=== PATIENT | female | born 1995 | race Caucasian/White ===

== ENCOUNTER 2017-02-25 15:54 | Emergency (ER) | payer OTHER ==
[2017-02-25 16:01] VITALS: BP 110/70; PULSE 92; RESP 20; TEMP 98.2; O2SAT 97
[2017-02-25] MEDS ORDERED: FAMOTIDINE 20 MG TAB PO ONE (16:17)
--- NOTE | 2017-02-25 16:25 | EDPHY ---
H & P Time Seen by Provider: 02/25/17 16:05 HPI/ROS: CHIEF COMPLAINT: Urticaria HISTORY OF PRESENT ILLNESS: 21-year-old female, special needs, in the ER with parents who provides history. Patient has a history of frequent urticaria, developed urticaria earlier today while in the shower. 25 mg oral Benadryl administered at home and mother notes progressively improving/resolving symptoms. At no point did the patient experience respiratory distress, change in voice, abdominal pain, vomiting, wheezing, dysphagia or odynophagia REVIEW OF SYSTEMS: A ten point review of systems was performed and is negative with the exception of the items mentioned in the HPI PAST MEDICAL & SURGICAL HISTORY: Special needs SOCIAL HISTORY: nonsmoker PHYSICAL EXAM (Prior to examination, patient consented to physical exam, hands were washed and my usual and customary physical exam procedures followed) 1) GENERAL: Well-developed, well-nourished, alert and oriented. Appears to be in no acute distress. 2) HEAD: Normocephalic, atraumatic 3) HEENT: Pupils equal, round, reactive to light bilaterally. Sclera anicteric. Nasopharynx, oropharynx, clear, no lesions. 4) NECK: Full range of motion, no meningeal signs. 5) LUNGS: Clear auscultation bilaterally, no wheezes, no rhonchi, no retractions. 6) HEART: Regular rate and rhythm, no murmur, no heave, no gallop. 7) ABDOMEN: No guarding, no rebound, no focal tenderness, 8) MUSCULOSKELETAL: No peripheral edema or discoloration.] 9) BACK: , no visual or palpable abnormality. 10) SKIN: Urticaria noted to the abdomen and proximal thighs. 11) Psychiatric: Patient is oriented X 3, there is no agitation. DIFFERENTIAL DIAGNOSIS: In no particular include but limited to urticaria, anaphylaxis, Evans-Efren, drug eruption Smoking Status: Never smoked Constitutional: Initial Vital Signs Temperature (C) 36.8 C 02/25/17 15:59 Heart Rate 92 02/25/17 15:59 Respiratory Rate 20 02/25/17 15:59 Blood Pressure 110/70 02/25/17 15:59 O2 Sat (%) 97 02/25/17 15:59 O2 Delivery Mode Room Air Allergies/Adverse Reactions: PHENOBARBITOL Allergy (Intermediate, Uncoded 02/25/17 15:56) Hives OYSTERS Allergy (Uncoded 10/18/11 20:25) Home Medications: Medication Instructions Recorded Control Pills 02/25/17 Nitrofurantoin Macrobid [Macrobid] 100 mg PO 02/25/17 Sertraline HCl [Zoloft 25mg (*)] 25 mg PO DAILY 02/25/17 MDM/Departure - [facility] ED Course/Re-evaluation: 418 p.m.: This patient has resolving urticaria with no signs of anaphylaxis after a 5 mg oral Benadryl pre-hospital. She has been given further oral Pepcid in the ER. I do not think that steroids, epinephrine currently indicated. I believe mother to have decision-making capacity. Mother feels comfortable being discharged. All questions and concerns addressed by myself. - Depart Disposition: Home, Routine, Self-Care Clinical Impression: Urticaria Condition: Good Instructions: Urticaria (ED) Additional Instructions: Call 911 if Sil develops problems breathing or any other symptoms that concern you Referrals: Follow-up, with software developer manager in 1-2 days [Other] - As per Instructions
== END 2017-02-25 16:32 | disposition home or self-care (01) ==
DX: L50.9 Urticaria, unspecified (principal)